=== PATIENT | female | born 1940 | race Caucasian/White ===

== ENCOUNTER 2018-08-24 12:19 | Inpatient (IN) | payer MEDICARE, BC ==
[2018-08-24] MEDS ORDERED: SODIUM CHLORIDE 0.9% 500 ML 500 ML IV STA (13:06)
[2018-08-24] MEDS ORDERED: SODIUM CHLORIDE 0.9% 1,000 ML IV STA (13:06)
[2018-08-24] MEDS ORDERED: IPRATROPIUM-ALBUTEROL 3 ML NEB INHALATION STA (13:23)
[2018-08-24 14:19] LABS: Anisocytosis Slight; HGB 7.4 gm/dL (11.4-16.0); Hypochromasia Slight; MCHC 33.5 g/dL (31.0-37.0); MCV 95.3 fL (80.0-100.0); Mean Platelet Volume 7.9; Platelet Count 100 k/uL (150-450); Poikilocytosis Slight; RBC 2.31 m/uL (3.80-5.40); WBC 3.9 k/uL (3.8-10.6)
[2018-08-24 14:21] LABS: Partial Thromboplastin Time 24.5 sec (22.0-30.0); Prothrombin Time 10.4 sec (9.0-12.0)
[2018-08-24 14:27] LABS: Albumin 2.9 g/dL (3.5-5.0); Magnesium 1.6 mg/dL (1.6-2.3); Phosphorus 4.6 mg/dL (2.5-4.5); Potassium 3.5 mmol/L (3.5-5.1); Total Bilirubin 0.6 mg/dL (0.2-1.3); Total Protein 6.6 g/dL (6.3-8.2)
[2018-08-24 14:54] LABS: Eosinophils # (M) 0.23 k/uL (0-0.7); Lymphocytes # (M) 1.09 k/uL (1.0-4.8); Metamyelocytes # (M) 0.04 k/uL (0); Metamyelocytes % 1 %; Monocytes # (M) 0.08 k/uL (0-1.0); Myelocytes % 5 %; Neutrophils # (M) 2.34 k/uL (1.3-7.7); Neutrophils % (M) 60 %; Nucleated Red Blood Cells 0 /100 WBC (0-0); Total Cells Counted 200
[2018-08-24 14:55] LABS: Polychromasia Present
[2018-08-24 15:35] LABS: Appearance,Urine Clear (Clear); Bacteria,Urine Rare /hpf; Bilirubin,Urine Negative (Negative); Blood,Urine Negative (Negative); Color,Urine Yellow; Glucose,Urine (UA) Negative (Negative); Hyaline Casts,Urine 8 /lpf (0-2); Ketones,Urine Negative (Negative); Leukocyte Esterase,Urine Negative (Negative); Mucus,Urine Rare /hpf; Nitrite,Urine Negative (Negative); PH, Urine 6.5 (5.0-8.0); Protein,Urine 2+ (Negative); RBC,Urine <1 /hpf (0-5); Specific Gravity,Urine 1.008 (1.001-1.035); Urobilinogen,Urine <2.0 mg/dL (<2.0); WBC,Urine 2 /hpf (0-5)
--- NOTE | 2018-08-24 15:44 | ED ---
Weakness HPI - General Chief complaint: Weakness Stated complaint: weakness, cough, abn labs Time Seen by Provider: 08/24/18 12:55 Source: patient Mode of arrival: ambulatory Limitations: no limitations - History of Present Illness Initial comments: This 77-year-old white female presents with a complaint of some weakness and anemia. She states that she has felt weak over the past couple of months. She had some blood work done at [facility] recently and this showed that her hemoglobin was low at 8.0. She denies any known history of anemia. She denies any blood in her stool or black tarry stools. She further relates that she has had a recent cough which is nonproductive. She denies any fevers or chills. There is no significant shortness of breath or chest pain. She states that she thinks she has had a slight weight loss over the past 3 months as well. She did have a workup at [facility] recently including an x-ray of the chest, abdominal/retroperitoneal ultrasound, and computed tomography scan of abdomen and pelvis and laboratory workplease see chart for this information. Overall, it did not show any significant abnormalities. They did note a renal cyst. The above-noted anemia also is identified and her last hemoglobin was 8.0 on 08/17/2018. She denies any abdominal pain. There is no other complaints or mod ifying factors. - Related Data Home Medications Medication Instructions Recorded Confirmed Triamterene-Hctz 75-50Mg [Maxzide 1 tab PO DAILY 08/24/18 08/24/18 75-50] Allergies Allergy/AdvReac Type Severity Reaction Status Date / Time No Known Allergies Allergy Verified 08/24/18 13:03 Review of Systems ROS Statement: Those systems with pertinent positive or pertinent negative responses have been documented in the HPI. ROS Other: All systems not noted in ROS Statement are negative. Past Medical History Past Medical History: Hypertension Additional Past Medical History / Comment(s): anemia, History of Any Multi-Drug Resistant Organisms: None Reported Past Surgical History: Back Surgery, Hysterectomy Past Psychological History: No Psychological Hx Reported Smoking Status: Never smoker Past Alcohol Use History: None Reported Past Drug Use History: None Reported General Exam - General Exam Comments Initial Comments: GENERAL: The patient is well nourished and well hydrated. VITAL SIGNS: Heart rate, blood pressure, respiratory rate reviewed as recorded in nurse's notes. EYES: Pupils are round and reactive. Extraocular movements are intact. No conjunctival / lid redness or swelling. ENT: No external evidence of injury, swelling, or ecchymosis. Airway is patent. Throat is clear. NECK: Nontender. No swelling or evidence of injury. No subcutaneous emphysema. Trachea is midline. No thyroid mass. HEART: Regular rate and rhythm. Good peripheral pulses. LUNGS/CHEST: Breath sounds clear and equal bilaterally. No rales, rhonchi, or wheezes. No ecchymosis, subcutaneous emphysema, or tenderness. ABDOMEN: Abdomen soft without tenderness. No palpable masses or organomegaly. No peritoneal signs. No abdominal wall swelling or ecchymosis. EXTREMITIES: No extremity tenderness. Normal muscle tone and function. No thoracolumbar tenderness. NEUROLOGIC: Sensation is grossly intact. Cranial nerve exam reveals face is symmetrical, tongue is midline, speech is clear. SKIN: No abrasions or ecchymosis is noted. No induration or masses noted. Patient appears pale. PSYCHIATRIC: Alert and oriented. Appropriate behavior and judgment. Rectal exam: No gross blood noted. Good rectal tone. Hemoccult is negative. Limitations: no limitations Course Vital Signs 08/24/18 08/24/18 08/24/18 12:39 14:27 14:38 Temperature 98.4 F Pulse Rate 77 73 74 Respiratory 18 Rate Blood Pressure 100/53 O2 Sat by Pulse 98 Oximetry 08/24/18 15:35 Temperature Pulse Rate 96 Respiratory 18 Rate Blood Pressure 131/58 O2 Sat by Pulse 98 Oximetry Medical Decision Making - Medical Decision Making The patient is seen and examined. All diagnostics are reviewed. The EKG shows a normal sinus rhythm at a rate of 72. There is no acute ST-T wave changes identified. The MN intervals 150, QRS duration is 90, and the QTC intervals 431. The patient also has a laboratory analysis which shows that her hemoglobin is low at 7.4. The remainder of labs are overall fairly unremarkable. It is felt as though she would benefit from admission to the hospital for further workup and treatment. The Hemoccult is negative. The exact cause of her anemia is not definitively determined. She is quite unsteady with ambulation and quite weak. It is felt as though she has symptomatic anemia. The chest x-ray does not show any acute abnormalities per my review. It is felt as though she may have a upper respiratory infection. Case is discussed with Dr. Ambrose and he is agreeable with admission, transfusion of 1 unit of packed red blood cells, and influenza testing. The patient is agreeable as well. - Lab Data Result diagrams: 08/24/18 13:40 08/24/18 13:40 Lab Results 08/24/18 08/24/18 08/24/18 Range/Units 13:40 13:40 13:40 WBC 3.9 (3.8-10.6) k/uL RBC 2.31 L (3.80-5.40) m/uL Hgb 7.4 L (11.4-16.0) gm/dL Hct 22.0 L (34.0-46.0) % MCV 95.3 (80.0-100.0) fL MCH 32.0 (25.0-35.0) pg MCHC 33.5 (31.0-37.0) g/dL RDW 18.0 H (11.5-15.5) % Plt Count 100 L (150-450) k/uL Neutrophils % (Manual) 60 % Lymphocytes % (Manual) 28 % Monocytes % (Manual) 2 % Eosinophils % (Manual) 6 % Metamyelocytes % 1 % Myelocytes % 5 % Neutrophils # (Manual) 2.34 (1.3-7.7) k/uL Lymphocytes # (Manual) 1.09 (1.0-4.8) k/uL Monocytes # (Manual) 0.08 (0-1.0) k/uL Eosinophils # (Manual) 0.23 (0-0.7) k/uL Metamyelocytes # (Man) 0.04 H (0) k/uL Myelocytes # (Manual) 0.20 H (0) k/uL Nucleated RBCs 0 (0-0) /100 WBC Polychromasia Present Hypochromasia Slight Poikilocytosis Slight Anisocytosis Slight PT 10.4 (9.0-12.0) sec INR 1.0 (<1.2) APTT 24.5 (22.0-30.0) sec Sodium 138 (137-145) mmol/L Potassium 3.5 (3.5-5.1) mmol/L Chloride 107 (98-107) mmol/L Carbon Dioxide 23 (22-30) mmol/L Anion Gap 8 mmol/L BUN 28 H (7-17) mg/dL Creatinine 0.97 (0.52-1.04) mg/dL Est GFR (CKD-EPI)AfAm 66 (>60 ml/min/1.73 sqM) Est GFR (CKD-EPI)NonAf 58 (>60 ml/min/1.73 sqM) Glucose 92 (74-99) mg/dL Calcium 9.0 (8.4-10.2) mg/dL Phosphorus 4.6 H (2.5-4.5) mg/dL Magnesium 1.6 (1.6-2.3) mg/dL Total Bilirubin 0.6 (0.2-1.3) mg/dL AST 23 (14-36) U/L ALT 20 (9-52) U/L Alkaline Phosphatase 79 (38-126) U/L Troponin I (0.000-0.034) ng/mL Total Protein 6.6 (6.3-8.2) g/dL Albumin 2.9 L (3.5-5.0) g/dL TSH 0.924 (0.465-4.680) mIU/L Urine Color Urine Appearance (Clear) Urine pH (5.0-8.0) Ur Specific [place] (1.001-1.035) Urine Protein (Negative) Urine Glucose (UA) (Negative) Urine Ketones (Negative) Urine Blood (Negative) Urine Nitrite (Negative) Urine Bilirubin (Negative) Urine Urobilinogen (<2.0) mg/dL Ur Leukocyte Esterase (Negative) Urine RBC (0-5) /hpf Urine WBC (0-5) /hpf Urine Bacteria (None) /hpf Hyaline Casts (0-2) /lpf Urine Mucus (None) /hpf Stool Occult Blood (Negative) Blood Type Blood Type Confirm Blood Type Recheck Antibody Screen Spec Expiration Date 08/24/18 08/24/18 08/24/18 Range/Units 13:40 13:40 14:46 WBC (3.8-10.6) k/uL RBC (3.80-5.40) m/uL Hgb (11.4-16.0) gm/dL Hct (34.0-46.0) % MCV (80.0-100.0) fL MCH (25.0-35.0) pg MCHC (31.0-37.0) g/dL RDW (11.5-15.5) % Plt Count (150-450) k/uL Neutrophils % (Manual) % Lymphocytes % (Manual) % Monocytes % (Manual) % Eosinophils % (Manual) % Metamyelocytes % % Myelocytes % % Neutrophils # (Manual) (1.3-7.7) k/uL Lymphocytes # (Manual) (1.0-4.8) k/uL Monocytes # (Manual) (0-1.0) k/uL Eosinophils # (Manual) (0-0.7) k/uL Metamyelocytes # (Man) (0) k/uL Myelocytes # (Manual) (0) k/uL Nucleated RBCs (0-0) /100 WBC Polychromasia Hypochromasia Poikilocytosis Anisocytosis PT (9.0-12.0) sec INR (<1.2) APTT (22.0-30.0) sec Sodium (137-145) mmol/L Potassium (3.5-5.1) mmol/L Chloride (98-107) mmol/L Carbon Dioxide (22-30) mmol/L Anion Gap mmol/L BUN (7-17) mg/dL Creatinine (0.52-1.04) mg/dL Est GFR (CKD-EPI)AfAm (>60 ml/min/1.73 sqM) Est GFR (CKD-EPI)NonAf (>60 ml/min/1.73 sqM) Glucose (74-99) mg/dL Calcium (8.4-10.2) mg/dL Phosphorus (2.5-4.5) mg/dL Magnesium (1.6-2.3) mg/dL Total Bilirubin (0.2-1.3) mg/dL AST (14-36) U/L ALT (9-52) U/L Alkaline Phosphatase (38-126) U/L Troponin I <0.012 (0.000-0.034) ng/mL Total Protein (6.3-8.2) g/dL Albumin (3.5-5.0) g/dL TSH (0.465-4.680) mIU/L Urine Color Urine Appearance (Clear) Urine pH (5.0-8.0) Ur Specific [place] (1.001-1.035) Urine Protein (Negative) Urine Glucose (UA) (Negative) Urine Ketones (Negative) Urine Blood (Negative) Urine Nitrite (Negative) Urine Bilirubin (Negative) Urine Urobilinogen (<2.0) mg/dL Ur Leukocyte Esterase (Negative) Urine RBC (0-5) /hpf Urine WBC (0-5) /hpf Urine Bacteria (None) /hpf Hyaline Casts (0-2) /lpf Urine Mucus (None) /hpf Stool Occult Blood (Negative) Blood Type O Positive Blood Type Confirm O Positive Blood Type Recheck CABO Indicated Antibody Screen NEGATIVE Spec Expiration Date 08/27/2018233908/24/18 08/24/18 Range/Units 15:01 15:19 WBC (3.8-10.6) k/uL RBC (3.80-5.40) m/uL Hgb (11.4-16.0) gm/dL Hct (34.0-46.0) % MCV (80.0-100.0) fL MCH (25.0-35.0) pg MCHC (31.0-37.0) g/dL RDW (11.5-15.5) % Plt Count (150-450) k/uL Neutrophils % (Manual) % Lymphocytes % (Manual) % Monocytes % (Manual) % Eosinophils % (Manual) % Metamyelocytes % % Myelocytes % % Neutrophils # (Manual) (1.3-7.7) k/uL Lymphocytes # (Manual) (1.0-4.8) k/uL Monocytes # (Manual) (0-1.0) k/uL Eosinophils # (Manual) (0-0.7) k/uL Metamyelocytes # (Man) (0) k/uL Myelocytes # (Manual) (0) k/uL Nucleated RBCs (0-0) /100 WBC Polychromasia Hypochromasia Poikilocytosis Anisocytosis PT (9.0-12.0) sec INR (<1.2) APTT (22.0-30.0) sec Sodium (137-145) mmol/L Potassium (3.5-5.1) mmol/L Chloride (98-107) mmol/L Carbon Dioxide (22-30) mmol/L Anion Gap mmol/L BUN (7-17) mg/dL Creatinine (0.52-1.04) mg/dL Est GFR (CKD-EPI)AfAm (>60 ml/min/1.73 sqM) Est GFR (CKD-EPI)NonAf (>60 ml/min/1.73 sqM) Glucose (74-99) mg/dL Calcium (8.4-10.2) mg/dL Phosphorus (2.5-4.5) mg/dL Magnesium (1.6-2.3) mg/dL Total Bilirubin (0.2-1.3) mg/dL AST (14-36) U/L ALT (9-52) U/L Alkaline Phosphatase (38-126) U/L Troponin I (0.000-0.034) ng/mL Total Protein (6.3-8.2) g/dL Albumin (3.5-5.0) g/dL TSH (0.465-4.680) mIU/L Urine Color Yellow Urine Appearance Clear (Clear) Urine pH 6.5 (5.0-8.0) Ur Specific [place] 1.008 (1.001-1.035) Urine Protein 2+ H (Negative) Urine Glucose (UA) Negative (Negative) Urine Ketones Negative (Negative) Urine Blood Negative (Negative) Urine Nitrite Negative (Negative) Urine Bilirubin Negative (Negative) Urine Urobilinogen <2.0 (<2.0) mg/dL Ur Leukocyte Esterase Negative (Negative) Urine RBC <1 (0-5) /hpf Urine WBC 2 (0-5) /hpf Urine Bacteria Rare H (None) /hpf Hyaline Casts 8 H (0-2) /lpf Urine Mucus Rare H (None) /hpf Stool Occult Blood Negative (Negative) Blood Type Blood Type Confirm Blood Type Recheck Antibody Screen Spec Expiration Date Disposition Clinical Impression: Symptomatic anemia, Weakness, Cough, Upper respiratory infection Disposition: ADMITTED IP TO THIS [facility] Condition: Fair Is patient prescribed a controlled substance at d/c from ED?: No Referrals: Alexsander Helm MD [Primary Care Provider] - 1-2 days Time of Disposition: 16:03 Decision Date: 08/24/18 Decision Time: 16:03
--- NOTE | 2018-08-24 15:49 | XR ---
EXAMINATION TYPE: XR chest 2V DATE OF EXAM: 08/24/2018 COMPARISON: NONE HISTORY: Cough, congestion, weakness and abnormal labs. TECHNIQUE: Frontal and lateral views of the chest are obtained. FINDINGS: There is no focal air space opacity, pleural effusion, or pneumothorax seen. The cardiac silhouette size is mildly enlarged. The osseous structures are intact. IMPRESSION: No acute cardiopulmonary process.
[2018-08-24] MEDS ORDERED: ONDANSETRON 4 MG/2 ML VIAL IVP PRN (16:04)
[2018-08-24] MEDS ORDERED: IPRATROPIUM-ALBUTEROL 3 ML NEB INHALATION PRN (16:10)
[2018-08-24] MEDS ORDERED: PANTOPRAZOLE 40 MG/10 ML VIAL IV SCH (16:15)
[2018-08-24 18:20] VITALS: BMI 26.6
[2018-08-24] MEDS ORDERED: RX INFO: IV CONTRAST WAS GIVEN 1 EACH MISC MISCELLANE PRN (21:26)
[2018-08-24] MEDS: LORATADINE-PSEUDOEPH 5-120 MG 1 EACH TAB.ER.12H PO SCH (23:10)
--- NOTE | 2018-08-25 00:19 | HP ---
HISTORY AND PHYSICAL PRESENTING COMPLAINT: Weak and tired. HISTORY OF PRESENTING COMPLAINT: This is a pleasant 77-year-old patient who follows with Dr. Helm. The patient presents with feeling tired and run down. The patient has a decreased appetite for the last 3 weeks, has lost about 12 pounds. Also for a few weeks she describes as a cold, has a cough with clear phlegm, but no fever or chills. Just feels tired and run down. The patient in the ER was found to have a hemoglobin of 7.4. Because she was symptomatic, weak and tired, decided to get admitted. A unit of blood was ordered. The patient denies any blood in the sputum. No blood in the stools. Denies any fevers or chills. REVIEW OF SYSTEMS: CONSTITUTIONAL: Weight loss, loss of appetite. HEENT: Decreased hearing. RESPIRATORY: As above with congestion. CARDIOVASCULAR: None. GASTROINTESTINAL: None. GENITOURINARY: None. MUSCULOSKELETAL: None. LYMPHATIC: None. PSYCHIATRY: None. NEUROLOGIC: None. PAST MEDICAL HISTORY: Hypertension, anemia. PAST SURGICAL HISTORY: Back surgery, hysterectomy. SOCIAL HISTORY: No smoking, no alcohol. . FAMILY HISTORY: Reviewed, noncontributory to presentation. HOME MEDICATIONS: Maxzide 75/50 one tab p.o. daily. ALLERGIES: None. PHYSICAL EXAMINATION: VITAL SIGNS: Vital signs on presentation, temperature 98.4, pulse 77, respiration 18, blood pressure 100/53, pulse 98% on room air. GENERAL APPEARANCE: Average built, sitting up, awake. EYES: Pupil equal. Conjunctivae pale. HEENT: External appearance of nose is normal. Oral cavity showing telangectasia on the lips. NECK: JVD not raised. Mass not palpable. Respiratory effort normal. LUNGS: Clear. CARDIOVASCULAR: 1st and 2nd sounds normal. No edema. ABDOMEN: Soft, nontender. Liver and spleen not palpable. LYMPHATIC: No lymph nodes palpable in the neck or axillae. PSYCHIATRY: Alert and oriented x3. Mood and affect normal. NEUROLOGIC: Pupils equal. Cranial nerves grossly intact. Power and sensation grossly intact. HEENT: Decreased hearing. INVESTIGATIONS: Reviewed in the clinical context. White count 3.9, hemoglobin 7.4, platelets 100,000. Potassium 3.5, BUN 28, creatinine 0.59, albumin 2.9. TSH 0.924. EKG tracing personally reviewed by me shows normal sinus rhythm. Chest x-ray film personally reviewed by me shows no infiltrates on the chest x-ray review. Report was reviewed. ASSESSMENT: 1. This is a patient who presents with a loss of appetite for 3 weeks, weight loss, found to be anemic. Will do a CT scan of the chest, abdomen and pelvis with contrast. Other workup done as an outpatient. 2. Bicytopenia with normocytic anemia. Need to consider other causes including a bone marrow disorder. 3. Essential hypertension. PLAN: The patient was ordered a unit of blood. We will check a CBC tomorrow. We will do a CT scan of the chest, abdomen, and pelvis with contrast. If all negative, the patient will need an EGD to rule out Osler Cordova Rendu syndrome given the telangectasia on the lips. Otherwise also need hematological workup by hematology scheduled as an outpatient. I expect the patient to stay overnight and if everything is negative she can be discharged tomorrow. Care was discussed at length with the patient. YVROSE / LEON: [id number] /
[2018-08-25 02:55] LABS: Iron Saturation 12.95 (12.00-45.00)
[2018-08-25] MEDS: IOPAMIDOL-300 CONTRAST 30 ML VIAL (ORAL USE) PO PRN ×2 (06:35→07:34)
[2018-08-25 08:12] LABS: Anisocytosis Slight; HCT 24.3 % (34.0-46.0); HGB 8.1 gm/dL (11.4-16.0); Hypochromasia Slight; MCH 31.4 pg (25.0-35.0); MCHC 33.2 g/dL (31.0-37.0); MCV 94.6 fL (80.0-100.0); Mean Platelet Volume 8.1; Poikilocytosis Slight; RBC 2.57 m/uL (3.80-5.40); RDW 17.7 % (11.5-15.5); WBC 3.3 k/uL (3.8-10.6)
[2018-08-25 08:28] LABS: ALT 26 U/L (9-52); AST 16 U/L (14-36); Albumin 2.7 g/dL (3.5-5.0); Alkaline Phosphatase 78 U/L (38-126); Anion Gap 6 mmol/L; Blood Urea Nitrogen 20 mg/dL (7-17); Calcium 8.9 mg/dL (8.4-10.2); Carbon Dioxide 24 mmol/L (22-30); Chloride 110 mmol/L (98-107); Glucose 119 mg/dL (74-99); Potassium 3.3 mmol/L (3.5-5.1); Sodium 140 mmol/L (137-145); Total Bilirubin 0.6 mg/dL (0.2-1.3); Total Protein 6.2 g/dL (6.3-8.2)
[2018-08-25] MEDS: ENOXAPARIN 40 MG/0.4 ML SYRINGE SQ SCH (08:34)
[2018-08-25] MEDS: LORATADINE-PSEUDOEPH 5-120 MG 1 EACH TAB.ER.12H PO SCH ×2 (08:35→20:34)
[2018-08-25] MEDS ORDERED: TRIAMTERENE-HCTZ 75-50MG 1 EACH TAB PO SCH (09:00)
[2018-08-25 09:04] LABS: Band Neutrophils % 2 %; Eosinophils # (M) 0.26 k/uL (0-0.7); Lymphocytes # (M) 0.69 k/uL (1.0-4.8); Metamyelocytes # (M) 0.07 k/uL (0); Metamyelocytes % 2 %; Myelocytes # (M) 0.23 k/uL (0); Myelocytes % 7 %; Neutrophils % (M) 54 %; Promyelocytes # (M) 0.03 k/uL (0); Promyelocytes % 1 %
[2018-08-25 09:08] LABS: Blast Cells # (M) 0.13 k/uL (0); Nucleated Red Blood Cells 1 /100 WBC (0-0); Total Cells Counted 200
[2018-08-25 09:09] LABS: Polychromasia Present
[2018-08-25 09:11] LABS: Platelet Count 97 k/uL (150-450)
--- NOTE | 2018-08-25 09:40 | CT ---
EXAMINATION TYPE: CT ChestAbdPelvis w con DATE OF EXAM: 08/25/2018 COMPARISON: Radiograph 08/24/2018 HISTORY: 77-year-old female Symptomatic anemia, URI and Cough. R/O malignancy TECHNIQUE: Contiguous axial scanning of the chest, abdomen, and pelvis performed with IV Contrast, pa tient injected with 100 ml mL of Isovue 300. Delayed images through the kidneys were obtained. Genao l/sagittal reconstructions performed. CT DLP: 1697 mGycm Automated exposure control for dose reduction was used. FINDINGS: CHEST: Heart upper limits of normal in size with trace anterior basilar pericardial fluid. Aorta normal caliber with mild atherosclerotic arch calcifications and conventional arch vessel branc amarjit anatomy. No thoracic lymphadenopathy by CT size criteria. Mild dependent atelectasis and scattered additional strandy areas of atelectasis. No consolidation or pleural effusion. 4 mm subpleural pulmonary nodule peripheral left lower lobe, axial image 39 can be reassessed in one year. ABDOMEN: Tiny hiatal hernia. No focal liver lesion or biliary ductal dilatation. Portal venous system is patent. Borderline enlarg ed caliber to the main portal vein at 1.4 cm in the splenic vein 1.4 cm as well. Spleen is mildly enlarged at 14.0 cm. Gallbladder, adrenal glands, left kidney, and pancreas appear within normal limits. 3.4 cm benign cyst medial upper pole region. A couple additional subcentimeter hypodensities too smal l fragment CT characterization, probable cysts. A tiny 7 mm cortical hypodensity lateral lower pole s hows more intermediate attenuation, refer to delayed kidney images axial image 45 and can BE reassess ed at short interval follow-up. There is some focal pleural thickening along the proximal jejunum, refer to axial image 64 and genao l image 21, possible collapsed loop of bowel that should be reassessed at short interval follow-up. S ome scattered prominent mesenteric lymph nodes measure up to 6 mm and are probably reactive/post infl ammatory. No dilated small bowel, free fluid, or free air. Very redundant sigmoid colon extending out to the right side of the lower abdomen. Mild overall stool burden. Portion of a normal appendix is visualized. Pelvis: Bladder is urine distended. Uterus surgically absent. Some focal thickening along the pelvic sidewall s suspected to represent the ovaries. No abnormal fluid collection in the pelvis or pelvic lymphadeno mendoza seen. Bones: Stellate sclerotic focus within the right intertrochanteric region, likely bone island. Additional pr obable bone island posterior left acetabulum. Degenerative changes at the hips. Post surgical changes of L4-L5 posterior fusion. Mild to moderate degenerative disc disease mid to lower thoracic spine. N o osseous destructive process. IMPRESSION: 1. A 4 MM LEFT LOWER LOBE SUBPLEURAL PULMONARY NODULE CAN BE REASSESSED IN ONE YEAR. 2. BORDERLINE ENLARGED CALIBER TO THE MAIN PORTAL VEIN AND MILDLY ENLARGED CALIBER TO THE SPLENIC VEI N. THIS IS NONSPECIFIC BUT CAN BE SEEN IN THE SETTING OF PORTAL VENOUS HYPERTENSION. CLINICALLY CORRE LATE. THERE IS ALSO MILD SPLENOMEGALY AT 14.0 CM. 3. A NONSPECIFIC 7 MM LESION IN THE RIGHT KIDNEY SHOWS INTERMEDIATE ATTENUATION. IT MAY REPRESENT A T INY DEBRIS FILLED CYST. [address] MONTH FOLLOW-UP CT RECOMMENDED TO EXCLUDE A SMALL EARLY SOLID MASS. 4. AT THE FOLLOW-UP, SOME FOCAL BOWEL WALL THICKENING ALONG THE PROXIMAL JEJUNUM CAN ALSO BE REASSESS ED (CORONAL IMAGE 21). THIS MAY REPRESENT COLLAPSED BOWEL WALL. 5. INCIDENTALLY, THERE IS A VERY REDUNDANT SIGMOID COLON EXTENDING ALL THE WAY TO THE RIGHT SIDE OF T HE LOWER ABDOMEN. QUESTIONABLE CLINICAL SIGNIFICANCE.
--- NOTE | 2018-08-26 04:32 | PN ---
PROGRESS NOTE DATE OF SERVICE: 08/25/2018 PRESENTING COMPLAINT: Tired. INTERVAL HISTORY: This patient admitted with anemia, decreased appetite, weight loss, viral upper respiratory tract infection. Did get blood transfusion, feeling better today. The patient's peripheral blood smear is suggestive of myelodysplastic syndrome showing a lot of premature cells. This was discussed with Dr. Murillo ), pathologist. The patient still has respiratory symptoms. REVIEW OF SYSTEMS: Done for constitutional, cardiovascular, GI, pulmonary and findings as above. CURRENT MEDICATIONS: Reviewed that include Claritin-D. PHYSICAL EXAMINATION: Temperature 98.5, pulse 72, respirations 17, blood pressure 142/65, pulse ox 96 percent on room air. GENERAL: Sitting up, awake. EYES: Pupils equal. Conjunctivae normal. Pale. NECK: JVD not raised, mass not palpable. Respiratory effort normal. LUNGS: Clear. CARDIOVASCULAR: First and second heart sounds normal. No edema. ABDOMEN: Soft, nontender. Liver and spleen not palpable. PSYCHIATRY: Alert and oriented. Mood and affect normal. INVESTIGATIONS: CT scan of the abdomen chest and pelvis, no evidence of any obvious malignancy. The patient's white count 3.8, hemoglobin 8.1, platelets 97, and premature cells also noted. Potassium 3.3. The patient's other blood parameters were noted. ASSESSMENT: 1. Clinical and hematological picture at this point suggestive of myelodysplastic disorder. The patient will need a bone marrow. 2. No obvious evidence of any other malignancy at this point. 3. Symptomatic anemia from above, patient feeling better after blood transfusion. 4. Essential hypertension. 5. Upper respiratory tract viral infection. 6. Some telangiectasia, rule out a gastrointestinal cause. PLAN: Will get a hematology consultation. The patient will probably need a bone marrow. Will also get a GI opinion in case patient will need an EGD. Care was discussed at length with the patient and and several questions were answered. Total time spent today was 40 minutes with over 25 minutes of discussion. MMODL / IJN: [id number] /
[2018-08-26] MEDS: LORATADINE-PSEUDOEPH 5-120 MG 1 EACH TAB.ER.12H PO SCH ×2 (07:44→20:29)
--- NOTE | 2018-08-26 11:36 | P.CONS ---
History of Present Illness - Reason for Consult Consult date: 08/26/18 Anemia Requesting physician: Jagjit Ambrose - Chief Complaint Weakness - History of Present Illness 77-year-old female past medical history hypertension presents with weakness and a reported low hemoglobin of 8 at [facility]. Patient denies overt bleeding such as hematemesis hematochezia or melena. No history GI bleed or peptic ulcer disease. No history of EGD colonoscopy. Slight change in appetite over last few weeks with mild weight loss but states she has regained it back. Denies epigastric or abdominal pain. No fevers or chills. No history of malignancy or familial history of colon cancer. Admission hemoglobin 7.4 presently 8.1. MCV 94-95. Platelet 97-100,000. 4% blasts cells. White count 3.3-3.9. BUN 28. Creatinine 0.9. Iron 25. TIBC 19 3. Iron saturation 12%. Ferritin 431. Vitamin B-12 1970. FOBT negative. Influenza negative. CT chest abdomen and pelvis 4 mm left lower lobe subpleural pulmonary nodule can be reassessed in one year. Borderline enlarged caliber to the main portal vein and mildly enlarged caliber to the splenic vein. Nonspecific. Mild splenomegaly 14 cm. Focal small bowel wall thickening along the proximal jejunum may represent collapsed bowel wall. Redundant sigmoid colon. Review of Systems Constitutional: Denies fever, chills, sweats, weight gain, or loss. Weakness fatigue. HEENT: Negative for migraines, blurred vision or loss, earaches, drainage, tinnitus, oral mucosal lesions, dysphagia, or odynophagia. CARDIAC: Negative for chest pain, arrhythmias, or palpitation. RESPIRATORY: Negative for shortness of breath, hemoptysis, cough, or sputum production. GI: See HPI for pertinent findings. : Negative for hematuria, urgency, frequency, polyuria, or dysuria. GYNc: Negative vaginal discharge. MUSCULOSKELETAL: Negative for muscle aches, swelling, arthritis, and arthralgias. NEUROLOGIC: Negative for stroke or TIA. ENDOCRINE: Negative for thyroid problems. SKIN: Negative for rash or itching. PSYCHIATRIC: Negative history for depression and anxiety Past Medical History Past Medical History: Hypertension Additional Past Medical History / Comment(s): anemia, History of Any Multi-Drug Resistant Organisms: None Reported Past Surgical History: Back Surgery, Hysterectomy Past Anesthesia/Blood Transfusion Reactions: No Reported Reaction Past Psychological History: No Psychological Hx Reported Smoking Status: Never smoker Past Alcohol Use History: None Reported Past Drug Use History: None Reported - Past Family History Mother Family Medical History: No Reported History Medications and Allergies Home Medications Medication Instructions Recorded Confirmed Type Triamterene-Hctz 75-50Mg [Maxzide 1 tab PO DAILY 08/24/18 08/24/18 History 75-50] Loratadine-Pseudoeph 5-120 mg 1 each PO Q12HR #10 tab.er.12h 08/25/18 Rx [Claritin-D 12 Hour] Allergies Allergy/AdvReac Type Severity Reaction Status Date / Time No Known Allergies Allergy Verified 08/24/18 13:03 Physical Exam Vitals: Vital Signs Temp Pulse Pulse Resp BP Pulse Ox 08/26/18 08:20 75 74 16 08/26/18 05:01 99.9 F H 74 16 130/71 97 08/25/18 21:00 98.1 F 71 16 119/58 97 08/25/18 11:55 98.5 F 70 17 142/65 96 Intake and Output 08/25/18 08/26/18 08/26/18 22:59 06:59 14:59 Intake Total 590 590 Balance 590 590 Intake: Oral 590 590 Other: Voiding Method Toilet Toilet Bedside Commode Bedside Commode # Voids 1 3 General appearance: The patient is alert, oriented, in no acute distress. HET: Head is normocephalic and atraumatic. Pupils are equal and reactive. Oropharynx is clear without lesions. Neck: Supple without lymphadenopathy. Trachea midline. Heart: S1 S2. Regular rate and rhythm. Lungs: No crackles or wheezes are heard. Abdomen: Soft, nontender, nondistended with bowel sounds. No peritoneal signs. No palpable organomegaly or masses. Extremities: Normal skin color and turgor. No cyanosis, rash, ulceration, clubbing, or edema. Radial and pedal pulses are 2/4 bilaterally. Neurological: No focal deficits. Strength and sensation are grossly intact. Results CBC & Chem 7: 08/25/18 07:45 08/25/18 07:45 Labs: Abnormal Lab Results - Last 24 Hours (Table) 08/25/18 Range/Units 07:45 Pathologist Review See comment A CT scan - abdomen: report reviewed (Dr. Seals) CT scan - chest: report reviewed (Dr. Seals) CT scan - pelvis: report reviewed (Dr. Seals) Assessment and Plan (1) Symptomatic anemia Narrative/Plan: 77-year-old female presents with symptomatic normocytic mildly hypochromic anemia with change in appetite over the last few weeks without abdominal pain, overt bleeding such as hematemesis hematochezia or melena. CBC differential shows evidence of bicytopenia with blast cells possible underlying bone marrow pathology possible MDS. Anemia secondary to an underlying gastrointestinal source cannot be excluded. No history of EGD colonoscopy screening. Current Visit: Yes Status: Acute Code(s): D64.9 - ANEMIA, UNSPECIFIED SNOMED Code(s): 092202117 Plan: 1. EGD colonoscopy recommended but will discuss further after bone marrow is completed by hematology. Case was discussed with Dr. Aguilar. Diet as tolerated. CBC monitoring. Thank you for this kind referral and the opportunity to participate in the care of your patient. This consultation was discussed with Dr. Seals. The impression and plan of care have been directed as dictated.
[2018-08-26] MEDS: ENOXAPARIN 40 MG/0.4 ML SYRINGE SQ SCH (11:46)
[2018-08-26] MEDS ORDERED: BISACODYL 5 MG TABLET.DR PO ONE (12:00)
[2018-08-26] MEDS ORDERED: PEG 3350-NA SULF,BICARB,CL/KCL 4,000 ML BOTTLE PO ONE (16:00)
[2018-08-26] MEDS: ACETAMINOPHEN TAB 325 MG TAB PO PRN (20:29)
--- NOTE | 2018-08-26 22:48 | P.CONS ---
History of Present Illness - Reason for Consult Consult date: 08/26/18 Pancytopenia - History of Present Illness The patient is a 77-year-old white female, and otherwise good health. The patient had come into her PCP, complaining of not feeling well over the past 2-3 weeks, with progression of symptoms, of malaise, decreased appetite, and weight loss of about 12 pounds. She stated that she hadn't had a cough for 2-3 months, with some increase in intensity as well as production of clear phlegm over the past couple of weeks. In the hospital, the patient had labs done which showed a hemoglobin of 7.4. WBC was 3.9, with 54% neutrophils, but a significant left shift including 4% b lasts on peripheral smear. Plt counts were 100. CT scan of the chest abdomen and pelvis did not reveal any concerning was her lesions or lymphadenopathy. Consult was therefore placed for further evaluation and recommendations. She denied any prior history of blood problems, or recent change in medications. No history of any actual fever or chills. Review of Systems Constitutional: Reports fatigue, Reports poor appetite, Reports weight loss Eyes: denies blurred vision, denies pain Ears: deny: decreased hearing, ear discharge, earache, tinnitus Ears, nose, mouth and throat: Reports sore throat Cardiovascular: Reports dyspnea on exertion Respiratory: Reports congestion, Reports cough, Reports dyspnea Gastrointestinal: Denies abdominal pain, Denies diarrhea, Denies nausea, Denies vomiting Genitourinary: Denies dysuria, Denies hematuria Menstruation: Reports postmenopausal Musculoskeletal: Reports muscle weakness Integumentary: Denies pruritus, Denies rash Neurological: Reports weakness Psychiatric: Denies anxiety, Denies depression Endocrine: Reports fatigue, Reports weight change Hematologic/Lymphatic: Reports as per HPI Past Medical History Past Medical History: Hypertension Additional Past Medical History / Comment(s): anemia, History of Any Multi-Drug Resistant Organisms: None Reported Past Surgical History: Back Surgery, Hysterectomy Past Anesthesia/Blood Transfusion Reactions: No Reported Reaction Past Psychological History: No Psychological Hx Reported Smoking Status: Never smoker Past Alcohol Use History: None Reported Past Drug Use History: None Reported - Past Family History Mother Family Medical History: No Reported History Medications and Allergies Home Medications Medication Instructions Recorded Confirmed Type Triamterene-Hctz 75-50Mg [Maxzide 1 tab PO DAILY 08/24/18 08/24/18 History 75-50] Loratadine-Pseudoeph 5-120 mg 1 each PO Q12HR #10 tab.er.12h 08/25/18 Rx [Claritin-D 12 Hour] Allergies Allergy/AdvReac Type Severity Reaction Status Date / Time No Known Allergies Allergy Verified 08/24/18 13:03 Physical Exam Vitals: Vital Signs Temp Pulse Pulse Resp BP Pulse Ox 08/26/18 15:01 75 82 17 08/26/18 11:52 98.3 F 82 17 128/67 98 08/26/18 08:20 75 74 16 08/26/18 05:01 99.9 F H 74 16 130/71 97 08/25/18 21:00 98.1 F 71 16 119/58 97 Intake and Output 08/26/18 08/26/18 08/26/18 06:59 14:59 22:59 Intake Total 590 260 Balance 590 260 Intake: Oral 590 260 Other: Voiding Method Toilet Toilet Toilet Bedside Commode Bedside Commode Bedside Commode # Voids 3 3 - Constitutional General appearance: no acute distress - EENT Eyes: EOMI, PERRLA ENT: hearing grossly normal, normal oropharynx - Neck Neck: no lymphadenopathy Thyroid: bilateral: normal size - Respiratory Respiratory: bilateral: CTA - Cardiovascular Rhythm: regular Heart sounds: normal: S1, S2 - Gastrointestinal General gastrointestinal: normal bowel sounds, soft - Integumentary Integumentary: normal - Neurologic Neurologic: CNII-XII intact - Musculoskeletal Musculoskeletal: generalized weakness, strength equal bilaterally - Psychiatric Psychiatric: A&O x's 3, appropriate affect Results CBC & Chem 7: 08/25/18 07:45 08/25/18 07:45 Chest x-ray: report reviewed CT scan - abdomen: report reviewed CT scan - chest: report reviewed CT scan - pelvis: report reviewed Assessment and Plan (1) Pancytopenia Narrative/Plan: This appears to be new onset, with no prior predisposing factors, such as medications or ETOH. Based on the clinicaly picture, especially WBC diff, a prim gregg bone marrow etiology , such as MDS, and Myelofibrosis , among others, is suspected. A viral infection could also cause this picture transiently, but this amount of left shift would be less likely - Thus the pt was recommended a bone marrow aspiration and biopsy for further w/u. The procedure was explained in detail. We will proceed to set it up with sedation. - Pancytopenia labs will be ordered - All counts are in a safe range. Continue to monitor and transfuse if needed. Use only irradiated blood products Current Visit: Yes Status: Acute Code(s): D61.818 - OTHER PANCYTOPENIA SNOMED Code(s): 965396199 (2) Weakness Narrative/Plan: Likely due to the underlying pancytopenia Current Visit: Yes Status: Acute Code(s): R53.1 - WEAKNESS SNOMED Code(s): 23996770
--- NOTE | 2018-08-26 23:39 | PN ---
PROGRESS NOTE DATE OF SERVICE: 08/26/2018 PRESENTING COMPLAINT: Tired. INTERVAL HISTORY: This patient presented with anemia and a viral upper respiratory tract infection; getting symptomatic treatment. The patient's peripheral blood smear is suggestive of myelodysplastic syndrome. Both GI and Hematology were consulted. The patient is tolerating some diet, status post blood transfusion. REVIEW OF SYSTEMS: Done for constitutional, cardiovascular, GI, pulmonary; relevant findings as above. CURRENT MEDICATIONS: Reviewed. They include Claritin-D. PHYSICAL EXAMINATION: Temperature 98.3, pulse 82, respiration 17, blood pressure 120/67, pulse ox 98% on room air. GENERAL APPEARANCE: Lying in bed, tired. Awake. EYES: Pupils equal. Conjunctivae pale. NECK: JVD not raised. Mass not palpable. RESPIRATORY: Effort normal. LUNGS: Fair air entry. CARDIOVASCULAR: First and second sounds normal. No edema. ABDOMEN: Soft, non-tender. Liver and spleen not palpable. PSYCHIATRY: Alert and oriented x3. Mood and affect normal. INVESTIGATIONS: White count 3.3, hemoglobin 8.1, platelets 97. Potassium 3.3. These labs are from yesterday. ASSESSMENT: 1. Hematological picture suggestive of myelodysplastic syndrome. Patient will probably need a bone marrow analysis. 2. Symptomatic anemia from above. Patient did require blood transfusion. 3. Essential hypertension. 4. Upper respiratory tract viral infection. 5. Some telangiectasia. Rule out a GI cause. PLAN: Await input from GI and Hematology. Care was discussed with the patient and her at the bedside. Later in the day patient did have a fever. ID will be consulted with both urine and blood cultures to be done. Patient did spike a fever of 102; I was called this evening. MMODL / IJN: [id number] /
[2018-08-27] MEDS: CEFEPIME 2 GM in SODIUM CHLORIDE 0.9% 100 ML IVPB SCH ×3 (00:40→23:08)
[2018-08-27 04:08] LABS: Appearance,Urine Clear (Clear); Bacteria,Urine Few /hpf; Bilirubin,Urine Negative (Negative); Blood,Urine Trace (Negative); Color,Urine Yellow; Glucose,Urine (UA) Negative (Negative); Ketones,Urine Negative (Negative); Leukocyte Esterase,Urine Trace (Negative); Mucus,Urine Rare /hpf; Nitrite,Urine Negative (Negative); PH, Urine 6.5 (5.0-8.0); Protein,Urine 3+ (Negative); RBC,Urine 1 /hpf (0-5); Specific Gravity,Urine 1.007 (1.001-1.035); Squamous Epithelial Cell,Urine 1 /hpf (0-4); Urobilinogen,Urine <2.0 mg/dL (<2.0)
[2018-08-27] MEDS: LORATADINE-PSEUDOEPH 5-120 MG 1 EACH TAB.ER.12H PO SCH ×2 (08:45→21:21)
[2018-08-27 08:58] LABS: Anisocytosis Slight; HCT 23.1 % (34.0-46.0); HGB 7.5 gm/dL (11.4-16.0); Hypochromasia Slight; MCH 29.9 pg (25.0-35.0); MCHC 32.3 g/dL (31.0-37.0); MCV 92.5 fL (80.0-100.0); Mean Platelet Volume 8.4; Platelet Count 106 k/uL (150-450); Poikilocytosis Slight; RDW 17.1 % (11.5-15.5); Reticulocyte % 1.9 % (0.5-2.0); WBC 3.5 k/uL (3.8-10.6)
--- NOTE | 2018-08-27 10:49 | XR ---
EXAMINATION TYPE: XR ankle complete LT, XR foot complete LT DATE OF EXAM: 08/27/2018 CLINICAL HISTORY: Left ankle and foot pain and swelling TECHNIQUE: Frontal, lateral and oblique images of the left foot and ankle are obtained. COMPARISON: None. FINDINGS: There is no acute fracture/dislocation evident in the left ankle or foot. The ankle morti se appears intact with normal alignment. No radiographic soft tissue swelling or radiopaque foreign b [place] is seen. There are calcifications along the Achilles tendon and plantar fascia that can be seen in calcific te ndinosis. Few vascular calcifications are also present. Moderate plantar heel spur is seen. Few faint calcifications at the first metacarpal phalangeal joint could be on a degenerative basis or could re late to gout/pseudogout. IMPRESSION: 1. No acute fracture or dislocation in the left foot or ankle. 2. Calcifications along the plantar fascia and Achilles tendon may relate to prior trauma or calcific tendinosis. 3. A few vague calcifications at the first metacarpal phalangeal joint may be degenerative or could r elate to mild sequela of gout/pseudogout. No erosions are seen.
[2018-08-27] MEDS ORDERED: MIDAZOLAM 2 MG/2 ML VIAL ONE (12:07)
[2018-08-27] MEDS ORDERED: IV FLUID CONTINUATION 1,000 ML IV ONE (12:07)
[2018-08-27] MEDS ORDERED: fentaNYL (PF) 50 MCG/ML 2 ML AMP ONE (12:07)
[2018-08-27] MEDS ORDERED: LIDOCAINE 1% INJ 10MG/ML (20 ML MDV) ONE (12:07)
[2018-08-27] MEDS ORDERED: PROPOFOL 10 MG/ML 20 ML VIAL IV ONE (12:07)
--- NOTE | 2018-08-27 12:23 | P.CONS ---
History of Present Illness - Reason for Consult Consult date: 08/27/18 Temperature of 102. - History of Present Illness This is a 77-year-old female gives history of having a cough with phlegm production, generalized weakness, generalized malaise over the past couple weeks. She denies having any fever, no chest pain, no abdominal pain, no nausea, vomiting, diarrhea. She came into [facility] emergency center for evaluation. Her white count was at 3.3 with hemoglobin 8.1 and platelet count 97, blast for. Smear showed possible MDS or other myelopthisic process involving the bone marrow. Homocysteine 15.43, albumin 2.7. Urinalysis was clear with nitrate negative and leukoesterase trace. Influenza testing done on August 24 and August 26 are all negative. Patient developed fever 102 on August 26. She has been seen by GI for anemia and need for possible EGD colonoscopy after bone marrow biopsy. Patient has been seen by Dr. Aguilar for pancytopenia and bone marrow biopsy is scheduled for today at noon. CAT scan of the chest abdomen and pelvis showed a 4 mm left lower lobe subpleural pulmonary nodule. Borderline portal vein and mildly enlarged caliber to the splenic vein, nonspecific seen in the setting of portal venous hypertension. Mild splenomegal y. Nonspecific 7 mm lesion in the right kidney may represent debris filled cyst. Focal bowel wall thickening along the proximal jejunum may represent collapsed bowel wall. Incidentally redundant sigmoid colon extending all the way to the right side of the lower abdomen. Patient states she has had weight loss of about 8 pounds and at this point her appetite is good. Patient is noted to have erythema to the left foot and she denies having any injury to the area. She states she was scratching the area to the lower pretibial area and a small abrasions are noted. Blood cultures status received. Patient has been started on cefepime. Review of Systems All systems: negative Constitutional: Reports chills, Reports fatigue, Reports malaise, Reports poor appetite, Reports weakness, Reports weight loss, Denies anorexia, Denies fever Eyes: denies blurred vision, denies pain Ears, nose, mouth and throat: Denies dysphagia, Denies headache, Denies mouth pain, Denies sore throat, Denies vertigo Cardiovascular: Denies chest pain, Denies decreased exercise tolerance, Denies dyspnea on exertion, Denies edema, Denies leg edema, Denies lightheadedness, Den ies shortness of breath, Denies syncope Respiratory: Reports cough, Reports cough with sputum Gastrointestinal: Denies abdominal pain, Denies diarrhea, Denies melena, Denies nausea, Denies vomiting Genitourinary: Denies dysuria, Denies hematuria, Denies urgency, Denies urinary frequency Musculoskeletal: Denies frequent falls, Denies gait dysfunction, Denies myalgias Musculoskeletal: left: ankle pain, ankle swelling, foot pain, foot swelling Integumentary: Denies pruritus, Denies rash, Denies wounds Neurological: Denies aphasia, Denies change in mentation, Denies numbness, Denies seizures, Denies weakness Psychiatric: Denies anxiety, Denies depression Endocrine: Denies fatigue, Denies weight change Past Medical History Past Medical History: Hypertension Additional Past Medical History / Comment(s): anemia, History of Any Multi-Drug Resistant Organisms: None Reported Past Surgical History: Back Surgery, Hysterectomy Past Anesthesia/Blood Transfusion Reactions: No Reported Reaction Past Psychological History: No Psychological Hx Reported Smoking Status: Never smoker Past Alcohol Use History: None Reported Additional Past Alcohol Use History / Comment(s): The patient is a lifelong nonsmoker. She denies any marijuana, illicit drug use or alcohol use. She was at home with her . There are no pets in the home. 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 Past Drug Use History: None Reported - Past Family History Mother Family Medical History: No Reported History Medications and Allergies Home Medications Medication Instructions Recorded Confirmed Type Triamterene-Hctz 75-50Mg [Maxzide 1 tab PO DAILY 08/24/18 08/24/18 History 75-50] Loratadine-Pseudoeph 5-120 mg 1 each PO Q12HR #10 tab.er.12h 08/25/18 Rx [Claritin-D 12 Hour] Allergies Allergy/AdvReac Type Severity Reaction Status Date / Time No Known Allergies Allergy Verified 08/24/18 13:03 Physical Exam Vitals: Vital Signs Temp Pulse Pulse Resp BP Pulse Ox 08/27/18 05:23 99.7 F H 76 16 147/75 95 08/26/18 21:25 99.6 F 08/26/18 20:30 102.0 F H 76 16 126/67 94 L 08/26/18 20:16 18 08/26/18 15:01 75 82 17 08/26/18 11:52 98.3 F 82 17 128/67 98 Intake and Output 08/26/18 08/27/18 08/27/18 22:59 06:59 14:59 Intake Total 210 460 Balance 210 460 Intake: IV 60 160 0.9@20 60 160 Intake, IV Titration 100 Amount Cefepime 2 gm In Sodium 100 Chloride 0.9% 100 ml @ 200 mls/hr IVPB Q12H [facility] Rx#:[id number] Oral 150 200 Other: Voiding Method Toilet Toilet Bedside Commode Bedside Commode # Voids 1 300 Gen: This is a 77-year-old female. She is resting in bed and appears to be comfortable and in no acute distress. HEENT: Head is atraumatic, normocephalic. Pupils equal, round. Sclerae is anicteric. NECK: Supple. No JVD. No lymphadenopathy. No thyromegaly. LUNGS: Clear to auscultation. No wheezes or rhonchi. No intercostal retrac tions. HEART: Regular rate and rhythm. No murmur. ABDOMEN: Soft. Bowel sounds are present. No masses. No tenderness. EXTREMITIES: No pedal edema. No calf tenderness. There is erythema and edema to the left plantar surface medial foot and ankle. Warmth is noted. No open wounds. NEUROLOGICAL: Patient is awake, alert and oriented x3. Cranial nerves 2 through 12 are grossly intact. Results Results: Laboratory Results WBC 3.5 k/uL (3.8-10.6) L 08/27/18 08:02 RBC 2.50 m/uL (3.80-5.40) L 08/27/18 08:02 Hgb 7.5 gm/dL (11.4-16.0) L 08/27/18 08:02 Hct 23.1 % (34.0-46.0) L 08/27/18 08:02 MCV 92.5 fL (80.0-100.0) 08/27/18 08:02 MCH 29.9 pg (25.0-35.0) 08/27/18 08:02 MCHC 32.3 g/dL (31.0-37.0) 08/27/18 08:02 RDW 17.1 % (11.5-15.5) H 08/27/18 08:02 Plt Count 106 k/uL (150-450) L 08/27/18 08:02 Neutrophils % (Manual) 54 % 08/25/18 07:45 Band Neutrophils % 2 % 08/25/18 07:45 Lymphocytes % (Manual) 21 % 08/25/18 07:45 Monocytes % (Manual) 3 % 08/25/18 07:45 Eosinophils % (Manual) 8 % 08/25/18 07:45 Metamyelocytes % 2 % 08/25/18 07:45 Myelocytes % 7 % 08/25/18 07:45 Promyelocytes % 1 % 08/25/18 07:45 Blast Cells % 4 % H* 08/25/18 07:45 Neutrophils # (Manual) 1.80 k/uL (1.3-7.7) 08/25/18 07:45 Lymphocytes # (Manual) 0.69 k/uL (1.0-4.8) L 08/25/18 07:45 Monocytes # (Manual) 0.10 k/uL (0-1.0) 08/25/18 07:45 Eosinophils # (Manual) 0.26 k/uL (0-0.7) 08/25/18 07:45 Metamyelocytes # (Man) 0.07 k/uL (0) H 08/25/18 07:45 Myelocytes # (Manual) 0.23 k/uL (0) H 08/25/18 07:45 Promyelocytes # (Man) 0.03 k/uL (0) H 08/25/18 07:45 Blast Cells # (Man) 0.13 k/uL (0) H 08/25/18 07:45 Nucleated RBCs 1 /100 WBC (0-0) H 08/25/18 07:45 Differential Comment 08/24/18 13:40 Manual Slide Review Performed 08/25/18 07:45 Pathologist Review See comment A 08/25/18 07:45 Polychromasia Present 08/25/18 07:45 Hypochromasia Slight 08/25/18 07:45 Poikilocytosis Slight 08/25/18 07:45 Anisocytosis Slight 08/25/18 07:45 PT 10.4 sec (9.0-12.0) 08/24/18 13:40 INR 1.0 (<1.2) 08/24/18 13:40 APTT 24.5 sec (22.0-30.0) 08/24/18 13:40 Sodium 140 mmol/L (137-145) 08/25/18 07:45 Potassium 3.3 mmol/L (3.5-5.1) L 08/25/18 07:45 Chloride 110 mmol/L (98-107) H 08/25/18 07:45 Carbon Dioxide 24 mmol/L (22-30) 08/25/18 07:45 Anion Gap 6 mmol/L 08/25/18 07:45 BUN 20 mg/dL (7-17) H 08/25/18 07:45 Creatinine 0.73 mg/dL (0.52-1.04) 08/25/18 07:45 Est GFR (CKD-EPI)AfAm >90 (>60 ml/min/1.73 sqM) 08/25/18 07:45 Est GFR (CKD-EPI)NonAf 81 (>60 ml/min/1.73 sqM) 08/25/18 07:45 Glucose 119 mg/dL (74-99) H 08/25/18 07:45 Calcium 8.9 mg/dL (8.4-10.2) 08/25/18 07:45 Phosphorus 4.6 mg/dL (2.5-4.5) H 08/24/18 13:40 Magnesium 1.6 mg/dL (1.6-2.3) 08/24/18 13:40 Iron 25 ug/dL (50-170) L 08/24/18 16:20 TIBC 193 ug/dL (228-460) L 08/24/18 16:20 Iron Saturation 12.95 (12.00-45.00) 08/24/18 16:20 Ferritin 431.9 ng/mL (10.0-291.0) H 08/24/18 16:20 Total Bilirubin 0.6 mg/dL (0.2-1.3) 08/25/18 07:45 AST 16 U/L (14-36) 08/25/18 07:45 ALT 26 U/L (9-52) 08/25/18 07:45 Alkaline Phosphatase 78 U/L (38-126) 08/25/18 07:45 Lactate Dehydrogenase 532 U/L (313-618) 08/27/18 08:02 Troponin I <0.012 ng/mL (0.000-0.034) 08/24/18 13:40 Total Protein 6.2 g/dL (6.3-8.2) L 08/25/18 07:45 Albumin 2.7 g/dL (3.5-5.0) L 08/25/18 07:45 Vitamin B12 1970.0 pg/mL (200.0-944.0) H 08/24/18 16:20 Methylmalonic Acid 0.27 umol/L (<0.40) 08/24/18 16:20 Homocysteine 15.43 umol/L (4.00-14.00) H 08/24/18 16:20 TSH 0.924 mIU/L (0.465-4.680) 08/24/18 13:40 Urine Color Yellow 08/27/18 03:45 Urine Appearance Clear (Clear) 08/27/18 03:45 Urine pH 6.5 (5.0-8.0) 08/27/18 03:45 Ur Specific [place] 1.007 (1.001-1.035) 08/27/18 03:45 Urine Protein 3+ (Negative) H 08/27/18 03:45 Urine Glucose (UA) Negative (Negative) 08/27/18 03:45 Urine Ketones Negative (Negative) 08/27/18 03:45 Urine Blood Trace (Negative) H 08/27/18 03:45 Urine Nitrite Negative (Negative) 08/27/18 03:45 Urine Bilirubin Negative (Negative) 08/27/18 03:45 Urine Urobilinogen <2.0 mg/dL (<2.0) 08/27/18 03:45 Ur Leukocyte Esterase Trace (Negative) H 08/27/18 03:45 Urine RBC 1 /hpf (0-5) 08/27/18 03:45 Urine WBC 2 /hpf (0-5) 08/27/18 03:45 Ur Squamous Epith Cells 1 /hpf (0-4) 08/27/18 03:45 Urine Bacteria Few /hpf (None) H 08/27/18 03:45 Hyaline Casts 8 /lpf (0-2) H 08/24/18 15:19 Urine Mucus Rare /hpf (None) H 08/27/18 03:45 Stool Occult Blood Negative (Negative) 08/24/18 15:01 Influenza Type A RNA Not Detected (Not Detectd) 08/26/18 21:30 Influenza Type B (PCR) Not Detected (Not Detectd) 08/26/18 21:30 Blood Type O Positive 08/24/18 13:40 Blood Type Confirm O Positive 08/24/18 14:46 Blood Type Recheck CABO Indicated 08/24/18 13:40 Antibody Screen NEGATIVE 08/24/18 13:40 Crossmatch See Detail 08/24/18 13:40 Spec Expiration Date 08/27/2018 - 233908/24/18 13:40 CBC & Chem 7: 08/27/18 08:02 08/25/18 07:45 Labs: Abnormal Lab Results - Last 24 Hours (Table) 08/27/18 08/27/18 Range/Units 03:45 08:02 WBC 3.5 L (3.8-10.6) k/uL RBC 2.50 L (3.80-5.40) m/uL Hgb 7.5 L (11.4-16.0) gm/dL Hct 23.1 L (34.0-46.0) % RDW 17.1 H (11.5-15.5) % Plt Count 106 L (150-450) k/uL Urine Protein 3+ H (Negative) Urine Blood Trace H (Negative) Ur Leukocyte Esterase Trace H (Negative) Urine Bacteria Few H (None) /hpf Urine Mucus Rare H (None) /hpf Assessment and Plan Plan: Of this is a 77-year-old female who presents to hospital with generalized symptoms of malaise, weakness, cough and weight loss with pancytopenia and now with leukopenic fever. Patient has been started on cefepime. She is scheduled for bone marrow biopsy this afternoon. We will order an x-ray of the left foot and ankle. Blood cultures status received. Continue supportive care. Further recommendations as patient progresses. The above dictated assessment and findings were discussed with Dr. Noland. The impression and plan of care have been directed as dictated. Keila Quach nurse practitioner acting as scribe for Dr. Noland.
--- NOTE | 2018-08-27 12:27 | P.PN ---
Subjective Progress Note Date: 08/27/18 Principal diagnosis: Anemia Bone marrow biopsy today with hematology. EGD/colonoscopy on hold. No GI bleeding. Hemoglobin 7.5. Platelet 106. White count 3.5. Objective - Vital Signs Vital signs: Vital Signs Temp 98.3 F 08/27/18 11:04 Pulse 81 08/27/18 11:04 Resp 16 08/27/18 11:04 BP 145/70 08/27/18 11:04 Pulse Ox 95 08/27/18 11:04 Intake & Output 08/26/18 08/27/18 08/27/18 18:59 06:59 18:59 Intake Total 260 670 Balance 260 670 Intake: IV 220 0.9@20 220 Intake, IV Titration 100 Amount Cefepime 2 gm In Sodium 100 Chloride 0.9% 100 ml @ 200 mls/hr IVPB Q12H [facility] Rx#:[id number] Oral 260 350 Other: Voiding Method Toilet Toilet Toilet Bedside Commode Bedside Commode Bedside Commode # Voids 3 300 - Exam General appearance: The patient is alert, oriented, in no acute distress. HET: Head is normocephalic and atraumatic. Pupils are equal and reactive. Oropharynx is clear without lesions. Neck: Supple without lymphadenopathy. Trachea midline. Heart: S1 S2. Regular rate and rhythm. Lungs: No crackles or wheezes are heard. Abdomen: Soft, nontender, nondistended with bowel sounds. No peritoneal signs. No palpable organomegaly or masses. Extremities: Normal skin color and turgor. No cyanosis, rash, ulceration, clubbing, or edema. Radial and pedal pulses are 2/4 bilaterally. Neurological: No focal deficits. Strength and sensation are grossly intact. - Labs CBC & Chem 7: 08/27/18 08:02 08/25/18 07:45 Labs: Abnormal Lab Results - Last 24 Hours (Table) 08/27/18 08/27/18 Range/Units 03:45 08:02 WBC 3.5 L (3.8-10.6) k/uL RBC 2.50 L (3.80-5.40) m/uL Hgb 7.5 L (11.4-16.0) gm/dL Hct 23.1 L (34.0-46.0) % RDW 17.1 H (11.5-15.5) % Plt Count 106 L (150-450) k/uL Urine Protein 3+ H (Negative) Urine Blood Trace H (Negative) Ur Leukocyte Esterase Trace H (Negative) Urine Bacteria Few H (None) /hpf Urine Mucus Rare H (None) /hpf Assessment and Plan (1) Symptomatic anemia Narrative/Plan: 77-year-old female presents with symptomatic normocytic mildly hypochromic anemia with change in appetite over the last few weeks without abdominal pain, overt bleeding such as hematemesis hematochezia or melena. CBC differential s hows evidence of bicytopenia with blast cells possible underlying bone marrow pathology possible MDS. Anemia secondary to an underlying gastrointestinal source cannot be excluded. No history of EGD colonoscopy screening. Current Visit: Yes Status: Acute Code(s): D64.9 - ANEMIA, UNSPECIFIED SNOMED Code(s): 689705665 Plan: 1. EGD colonoscopy recommended but will discuss further after bone marrow is completed by hematology this can be pursued as an outpatient. Case was discussed with Dr. Aguilar. Bone marrow biopsy today. CBC monitoring. Assessment and plan a care discussed with Dr. Seals
--- NOTE | 2018-08-27 12:37 | P.PCN ---
Date of Procedure: 08/27/18 Preoperative Diagnosis: Pancytopenia, abnormal peripheral smear Postoperative Diagnosis: Same Procedure(s) Performed: Bone marrow aspiration biopsy Anesthesia: MAC Surgeon: Glynn Aguilar Psychiatric Social Worker Supervisor #1: Stated None Estimated Blood Loss (ml): 1 Pathology: other Condition: stable Disposition: floor Indications for Procedure: New onset pancytopenia, abnormal peripheral smear with left shift including blasts Operative Findings: Adequate samples Description of Procedure: The procedure was explained in detail to the patient and her family on the floor. Informed consent was obtained on the floor. She presented to the outpatient endoscopy suite. She was placed in the left that'll determine disposition. The area over both posterior hilar crest was cleaned and prepped with chlorhexidine and sterile draping. IV sedation was then initiated. Local anesthesia was administered to the right posteriorly crest. A Jamshidi needle was then inserted and bone marrow aspirate and biopsy obtained. On withdrawal of the needle hemostasis was easily achieved. Blood loss was minimal, and recovery from sedation was satisfactory. She appeared to have tolerated the procedure well without any obvious immediate complications.
--- NOTE | 2018-08-27 12:40 | P.PN ---
Subjective Progress Note Date: 08/27/18 The patient feels about the same. She denies any new complaints such as fevers or chills. No nausea or vomiting. She continues to have a cough with mild expectoration. Generalized weakness and malaise is persistent Objective - Vital Signs Vital signs: Vital Signs Temp 98.3 F 08/27/18 11:04 Pulse 81 08/27/18 11:04 Resp 16 08/27/18 11:04 BP 145/70 08/27/18 11:04 Pulse Ox 95 08/27/18 11:04 Intake & Output 08/26/18 08/27/18 08/27/18 18:59 06:59 18:59 Intake Total 260 670 100 Balance 260 670 100 Intake: IV 220 100 0.9@20 220 Intake, IV Titration 100 Amount Cefepime 2 gm In Sodium 100 Chloride 0.9% 100 ml @ 200 mls/hr IVPB Q12H [facility] Rx#:[id number] Oral 260 350 Other: Voiding Method Toilet Toilet Toilet Bedside Commode Bedside Commode Bedside Commode # Voids 3 300 - Constitutional General appearance: Present: no acute distress - EENT Eyes: Present: EOMI ENT: Present: hearing grossly normal, normal oropharynx - Respiratory Respiratory: bilateral: CTA - Cardiovascular Rhythm: regular Heart sounds: normal: S1, S2 - Gastrointestinal General gastrointestinal: Present: normal bowel sounds, soft - Integumentary Integumentary: Present: normal - Neurologic Neurologic: Present: CNII-XII intact - Musculoskeletal Musculoskeletal: Present: generalized weakness, strength equal bilaterally - Psychiatric Psychiatric: Present: A&O x's 3, appropriate affect - Labs CBC & Chem 7: 08/27/18 08:02 08/25/18 07:45 Labs: Abnormal Lab Results - Last 24 Hours (Table) 08/27/18 08/27/18 Range/Units 03:45 08:02 WBC 3.5 L (3.8-10.6) k/uL RBC 2.50 L (3.80-5.40) m/uL Hgb 7.5 L (11.4-16.0) gm/dL Hct 23.1 L (34.0-46.0) % RDW 17.1 H (11.5-15.5) % Plt Count 106 L (150-450) k/uL Urine Protein 3+ H (Negative) Urine Blood Trace H (Negative) Ur Leukocyte Esterase Trace H (Negative) Urine Bacteria Few H (None) /hpf Urine Mucus Rare H (None) /hpf Assessment and Plan (1) Pancytopenia Narrative/Plan: The patient's labs for pancytopenia do not show any evidence of deficiency state. Blood counts are fairly stable other than mild decrease in hemoglobin from 8.1 to 7.5. The patient will proceed with bone marrow aspiration and biopsy today. The procedure was explained again to the patient. She had no specific questions. Continue to monitor counts, with transfusion as needed. The case has been discussed with gastroenterology, who were consulted for endoscopic workup for her anemia. As the patient has no evidence of iron deficiency, and clinical picture is highly suggestive of a primary marrow disorder, endoscopy was not felt to be indicated. The procedure will be canceled. Current Visit: Yes Status: Acute Code(s): D61.818 - OTHER PANCYTOPENIA SNOMED Code(s): 187528084 (2) Weakness Narrative/Plan: Related to the above. She is fairly stable in this regard. Continue to monitor. Current Visit: Yes Status: Acute Code(s): R53.1 - WEAKNESS SNOMED Code(s): 36133673
[2018-08-27 13:21] LABS: Band Neutrophils % 2 %; Blast Cells # (M) 0.04 k/uL (0); Eosinophils # (M) 0.18 k/uL (0-0.7); Lymphocytes # (M) 0.74 k/uL (1.0-4.8); Metamyelocytes # (M) 0.04 k/uL (0); Metamyelocytes % 1 %; Monocytes # (M) 0.25 k/uL (0-1.0); Myelocytes # (M) 0.07 k/uL (0); Myelocytes % 2 %; Neutrophils % (M) 62 %; Nucleated Red Blood Cells 0 /100 WBC (0-0); Rouleaux Present; Total Cells Counted 200
[2018-08-27] MEDS: ACETAMINOPHEN TAB 325 MG TAB PO PRN ×2 (15:28→23:06)
[2018-08-27 17:58] LABS: Iron Saturation 9.09 (12.00-45.00); Protein, Total 5.3 g/dL (6.2-8.2); Rheumatoid Factor 8 IU/mL (0-15)
[2018-08-27] MEDS ORDERED: NAPROXEN 250 MG TAB PO PRN (18:25)
[2018-08-27] MEDS ORDERED: NAPROXEN 250 MG TAB PO STA (18:25)
--- NOTE | 2018-08-27 21:54 | P.CON ---
Consult Note - . Consult date: 08/27/18 Assessment/Plan:: This is a 77-year-old female gives history of having a cough with phlegm production, generalized weakness, generalized malaise over the past couple weeks. She denies having any fever, no chest pain, no abdominal pain, no nausea, vomiting, diarrhea. She came into [facility] emergency center for evaluation. Her white count was at 3.3 with hemoglobin 8.1 and platelet count 97, blast for. Smear showed possible MDS or other myelopthisic process involving the bone marrow. Homocysteine 15.43, albumin 2.7. Urinalysis was clear with nitrate negative and leukoesterase trace. Influenza testing done on August 24 and August 26 are all negative. Patient developed fever 102 on August 26. She has been seen by GI for anemia and need for possible EGD colonoscopy after bone marrow biopsy. Patient has been seen by Dr. Aguilar for pancytopenia and bone marrow biopsy is scheduled for today at noon. CAT scan of the chest abdomen and pelvis showed a 4 mm left lower lobe subpleural pulmonary nodule. Borderline portal vein and mildly enlarged caliber to the splenic vein, nonspecific seen in the setting of portal venous hypertension. Mild splenomegaly. Nonspecific 7 mm lesion in the right kidney may represent debris filled cyst. Focal bowel wall thickening along the proximal jejunum may represent collapsed bowel wall. Incidentally redundant sigmoid colon extending all the way to the right side of the lower abdomen. Patient states she has had weight loss of about 8 pounds and at this point her appetite is good. Patient is noted to have erythema to the left foot and she denies having any injury to the area. She states she was scratching the area to the lower pretibial area and a small abrasions are noted. Blood cultures status received. Patient has been started on cefepime.Please see the consult note is dictated by nurse practitioner Keila Main. Left foot and ankle area. X-rays of been performed without evidence of fracture or dislocation by concerns to potential gouty changes. 77 -year-old woman presents to Hospital feeling quite poorly. As noted has evidence of extensive pancytopenia and developed fever for which the infectious diseases consultation was requested. At the time of the call cefepime was added because of a febrile neutropenia. Cultures are all process and influenza testing was negative. Bone marrow biopsy is scheduled for this afternoon to evaluate the underlying bone marrow abnormality. Concern for myelodysplastic syndrome. It is noted she's having some significant discomfort to the Left- footed ankle. X-rays have been obtained with concerns the possibility of gouty arthritis no evidence of fracture or dislocation was noted. Given the significant discomfort she is having in this area colchicine can be added to determine if this can allow some improvement to the distinct discomfort she is having in this area. Silvadene and a gentle wrap can be applied to see if this can improve the discomfort she is having at this site. Uric acid to be evaluated. I agree with evaluation, assessment and plan as dictated by nurse practitioner Mrs. Keila Quach.
--- NOTE | 2018-08-27 22:34 | PN ---
PROGRESS NOTE DATE OF SERVICE: 08/27/2018 PRESENTING COMPLAINT: Tired. INTERVAL HISTORY: Patient admitted with viral upper respiratory tract infection and symptomatic anemia. The patient did have a bone marrow done today. Dr. Aguilar's opinion is that the patient probably does not need any endoscopy at this point. The patient did spike a fever last night. She was harrison cultured. Feels a bit better. Lying in bed. REVIEW OF SYSTEMS: Done for constitutional, cardiovascular, GI, pulmonary; relevant findings as above. CURRENT MEDICATIONS: Reviewed. They include Claritin-D. PHYSICAL EXAMINATION: T-max 102. Patient did also have a fever this afternoon. Pulse 88, respiration 16, blood pressure 116/72, pulse ox 93% on room air. GENERAL APPEARANCE: Lying in bed, tired-appearing. EYES: Pupils equal. Conjunctivae normal. NECK: JVD not raised. Mass not palpable. RESPIRATORY: Effort normal. LUNGS: Fair air entry. CARDIOVASCULAR: First and second sounds normal. No edema. ABDOMEN: Soft, non-tender. Liver and spleen not palpable. PSYCHIATRY: Alert and oriented x3. Mood and affect normal. INVESTIGATIONS: White count 3.5, hemoglobin 7.5. Rheumatoid factor 8. JUAN screen negative. UA unremarkable. ASSESSMENT: 1. Fever, persistent; could be from underlying viral infection. Cultures are pending. UA is unremarkable. 2. Hematological picture suggestive of myelodysplastic syndrome, status post bone marrow. 3. Symptomatic anemia. Patient did require blood transfusion. 4. Essential hypertension. PLAN: Patient's fever could have been can also be delayed blood transfusion reaction. Unclear at this time, although infectious workup is coming back negative. Will follow closely. ID is already on the case. MMODL / IJN: [id number] /
[2018-08-27] MEDS: COLCHICINE 0.6 MG EACH PO SCH (23:07)
[2018-08-28 08:08] LABS: Anisocytosis Slight; HCT 22.3 % (34.0-46.0); HGB 7.2 gm/dL (11.4-16.0); Hypochromasia Slight; MCHC 32.1 g/dL (31.0-37.0); MCV 93.4 fL (80.0-100.0); Mean Platelet Volume 8.9; Poikilocytosis Slight; RBC 2.39 m/uL (3.80-5.40); RDW 17.3 % (11.5-15.5); WBC 3.6 k/uL (3.8-10.6)
[2018-08-28] MEDS: COLCHICINE 0.6 MG EACH PO SCH (08:48)
[2018-08-28] MEDS: LORATADINE-PSEUDOEPH 5-120 MG 1 EACH TAB.ER.12H PO SCH (08:49)
[2018-08-28 09:21] LABS: Band Neutrophils % 3 %; Blast Cells # (M) 0.04 k/uL (0); Eosinophils # (M) 0.18 k/uL (0-0.7); Lymphocytes # (M) 0.79 k/uL (1.0-4.8); Metamyelocytes # (M) 0.11 k/uL (0); Metamyelocytes % 3 %; Monocytes # (M) 0.18 k/uL (0-1.0); Myelocytes # (M) 0.11 k/uL (0); Myelocytes % 3 %; Neutrophils % (M) 59 %; Nucleated Red Blood Cells 0 /100 WBC (0-0); Total Cells Counted 200
[2018-08-28 09:22] LABS: Platelet Count 79 k/uL (150-450); Rouleaux Present
[2018-08-28 12:20] VITALS: TEMP 98.4
[2018-08-28] MEDS ORDERED: NAPROXEN 250 MG TAB PO PRN (12:30)
[2018-08-28] MEDS ORDERED: NAPROXEN 250 MG TAB PO SCH (12:30)
[2018-08-28 13:07] VITALS: BP 131/73; PULSE 76; RESP 18
--- NOTE | 2018-08-28 13:39 | US ---
EXAMINATION TYPE: US venous doppler duplex LE LT DATE OF EXAM: 08/28/2018 1:32 PM COMPARISON: NONE CLINICAL HISTORY: edema and pain . SIDE PERFORMED: Left TECHNIQUE: The lower extremity deep venous system is examined utilizing real time linear array sonog prasanth with graded compression, doppler sonography and color-flow sonography. VESSELS IMAGED: External Iliac Vein (EIV) Common Femoral Vein Deep Femoral Vein Greater Saphenous Vein * Femoral Vein Popliteal Vein Proximal Calf Veins (* superficial vessels) Rouleaux flow noted throughout left side. Left Leg: Negative for DVT IMPRESSION: No evidence of DVT at this time.
[2018-08-28] MEDS: CEFEPIME 2 GM in SODIUM CHLORIDE 0.9% 100 ML IVPB SCH (13:58)
--- NOTE | 2018-08-28 14:44 | P.PN ---
Subjective Progress Note Date: 08/28/18 This is a 77-year-old female gives history of having a cough with phlegm production, generalized weakness, generalized malaise over the past couple weeks. She denies having any fever, no chest pain, no abdominal pain, no nausea, vomiting, diarrhea. She came into [facility] emergency center for evaluation. Her white count was at 3.3 with hemoglobin 8.1 and platelet count 97, blast for. Smear showed possible MDS or other myelopthisic process involving the bone marrow. Homocysteine 15.43, albumin 2.7. Urinalysis was clear with nitrate negative and leukoesterase trace. Influenza testing done on August 24 and August 26 are all negative. Patient developed fever 102 on August 26. She has been seen by GI for anemia and need for possible EGD colonoscopy after bone marrow biopsy. Patient has been seen by Dr. Aguilar for pancytopenia and bone marrow biopsy is scheduled for today at noon. CAT scan of the chest abdomen and pelvis showed a 4 mm left lower lobe subpleural pulmonary nodule. Borderline portal vein and mildly enlarged caliber to the splenic vein, nonspecific seen in the setting of portal venous hypertension. Mild splenomegaly. Nonspecific 7 mm lesion in the right kidney may represent debris filled cyst. Focal bowel wall thickening along the proximal jejunum may represent collapsed bowel wall. Incidentally redundant sigmoid colon extending all the way to the right side of the lower abdomen. Patient states she has had weight loss of about 8 pounds and at this point her appetite is good. Patient is noted to have erythema to the left foot and she denies having any injury to the area. She states she was scratching the area to the lower pretibial area and a small abrasions are noted. Blood cultures status received. Patient has been started on cefepime. 08/28/2018 patient is feeling considerably better today. Is becoming somewhat anxious to discharge to home. Her shortness of breath is improved. Her pain to her left foot is improved but certainly not resolved. Bone marrow aspiration is been performed and results are pending. Objective - Vital Signs Vital signs: Vital Signs Temp 98.4 F 08/28/18 12:19 Pulse 76 08/28/18 11:35 Resp 18 08/28/18 11:35 BP 131/73 08/28/18 11:35 Pulse Ox 96 03/22/19 11:35 Intake & Output 08/27/18 08/28/18 08/28/18 18:59 06:59 18:59 Intake Total 200 540 300 Output Total 100 400 Balance 100 540 -100 Intake: IV 100 Intake, IV Titration 100 Amount Cefepime 2 gm In Sodium 100 Chloride 0.9% 100 ml @ 200 mls/hr IVPB Q12H [facility] Rx#:[id number] Oral 540 300 Output: Urine 100 400 Other: Voiding Method Toilet Bedside Commode Bedside Commode Incontinent # Voids 2 1 - Exam Gen: This is a 77-year-old female. She is resting in bed and appears to be comfortable and in no acute distress. HEENT: Head is atraumatic, normocephalic. Pupils equal, round. Sclerae is anicteric. NECK: Supple. No JVD. No lymphadenopathy. No thyromegaly. LUNGS: Clear to auscultation. No wheezes or rhonchi. No intercostal retractions. HEART: Regular rate and rhythm. No murmur. ABDOMEN: Soft. Bowel sounds are present. No masses. No tenderness. EXTREMITIES: No pedal edema. No calf tenderness. There is erythema and edema to the left plantar surface medial foot and ankle. Warmth is noted. No open wounds. Less tender today nothing is draining, able to bear weight which is improved from admission NEUROLOGICAL: Patient is awake, alert and oriented x3 - Labs CBC & Chem 7: 08/28/18 07:00 08/25/18 07:45 Labs: Abnormal Lab Results - Last 24 Hours (Table) 08/27/18 08/27/18 08/28/18 Range/Units 08:02 08:02 07:00 WBC 3.6 L (3.8-10.6) k/uL RBC 2.39 L (3.80-5.40) m/uL Hgb 7.2 L (11.4-16.0) gm/dL Hct 22.3 L (34.0-46.0) % RDW 17.3 H (11.5-15.5) % Plt Count 79 L (150-450) k/uL Blast Cells % 1 H* % Lymphocytes # (Manual) 0.79 L (1.0-4.8) k/uL Metamyelocytes # (Man) 0.11 H (0) k/uL Myelocytes # (Manual) 0.11 H (0) k/uL Blast Cells # (Man) 0.04 H (0) k/uL Iron 15 L (50-170) ug/dL TIBC 165 L (228-460) ug/dL Iron Saturation 9.09 L (12.00-45.00) Ferritin 504.3 H (10.0-291.0) ng/mL Total Protein (PEP) 5.3 L (6.2-8.2) g/dL Vitamin B12 1323.0 H (200.0-944.0) pg/mL RBC Folate 1,625 H (280 - 791) ng/mL Free [place] LC, Quant 7.76 H (0.33-1.94) mg/dL Free Lambda LC, Quant 4.60 H (0.57-2.63) mg/dL Microbiology - Last 24 Hours (Table) 08/26/18 22:20 Blood Culture - Preliminary Blood No Growth after 24 hours Laboratory Results WBC 3.6 k/uL (3.8-10.6) L 08/28/18 07:00 RBC 2.39 m/uL (3.80-5.40) L 08/28/18 07:00 Hgb 7.2 gm/dL (11.4-16.0) L 08/28/18 07:00 Hct 22.3 % (34.0-46.0) L 08/28/18 07:00 MCV 93.4 fL (80.0-100.0) 08/28/18 07:00 MCH 30.0 pg (25.0-35.0) 08/28/18 07:00 MCHC 32.1 g/dL (31.0-37.0) 08/28/18 07:00 RDW 17.3 % (11.5-15.5) H 08/28/18 07:00 Plt Count 79 k/uL (150-450) L 08/28/18 07:00 Neutrophils % (Manual) 59 % 08/28/18 07:00 Band Neutrophils % 3 % 08/28/18 07:00 Lymphocytes % (Manual) 22 % 08/28/18 07:00 Monocytes % (Manual) 5 % 08/28/18 07:00 Eosinophils % (Manual) 5 % 08/28/18 07:00 Metamyelocytes % 3 % 08/28/18 07:00 Myelocytes % 3 % 08/28/18 07:00 Promyelocytes % 1 % 08/25/18 07:45 Blast Cells % 1 % H* 08/28/18 07:00 Neutrophils # (Manual) 2.20 k/uL (1.3-7.7) 08/28/18 07:00 Lymphocytes # (Manual) 0.79 k/uL (1.0-4.8) L 08/28/18 07:00 Monocytes # (Manual) 0.18 k/uL (0-1.0) 08/28/18 07:00 Eosinophils # (Manual) 0.18 k/uL (0-0.7) 08/28/18 07:00 Metamyelocytes # (Man) 0.11 k/uL (0) H 08/28/18 07:00 Myelocytes # (Manual) 0.11 k/uL (0) H 08/28/18 07:00 Promyelocytes # (Man) 0.03 k/uL (0) H 08/25/18 07:45 Blast Cells # (Man) 0.04 k/uL (0) H 08/28/18 07:00 Nucleated RBCs 0 /100 WBC (0-0) 08/28/18 07:00 Differential Comment 08/24/18 13:40 Manual Slide Review Performed 08/28/18 07:00 Pathologist Review See comment A 08/25/18 07:45 Polychromasia Present 08/25/18 07:45 Hypochromasia Slight 08/28/18 07:00 Poikilocytosis Slight 08/28/18 07:00 Anisocytosis Slight 08/28/18 07:00 Rouleaux Present 08/28/18 07:00 Retic Count 1.9 % (0.5-2.0) 08/27/18 08:02 PT 10.4 sec (9.0-12.0) 08/24/18 13:40 INR 1.0 (<1.2) 08/24/18 13:40 APTT 24.5 sec (22.0-30.0) 08/24/18 13:40 Sodium 140 mmol/L (137-145) 08/25/18 07:45 Potassium 3.3 mmol/L (3.5-5.1) L 08/25/18 07:45 Chloride 110 mmol/L (98-107) H 08/25/18 07:45 Carbon Dioxide 24 mmol/L (22-30) 08/25/18 07:45 Anion Gap 6 mmol/L 08/25/18 07:45 BUN 20 mg/dL (7-17) H 08/25/18 07:45 Creatinine 0.73 mg/dL (0.52-1.04) 08/25/18 07:45 Est GFR (CKD-EPI)AfAm >90 (>60 ml/min/1.73 sqM) 08/25/18 07:45 Est GFR (CKD-EPI)NonAf 81 (>60 ml/min/1.73 sqM) 08/25/18 07:45 Glucose 119 mg/dL (74-99) H 08/25/18 07:45 Uric Acid 5.6 mg/dL (3.7-7.4) 08/28/18 07:00 Calcium 8.9 mg/dL (8.4-10.2) 08/25/18 07:45 Phosphorus 4.6 mg/dL (2.5-4.5) H 08/24/18 13:40 Magnesium 1.6 mg/dL (1.6-2.3) 08/24/18 13:40 Iron 15 ug/dL (50-170) L 08/27/18 08:02 TIBC 165 ug/dL (228-460) L 08/27/18 08:02 Iron Saturation 9.09 (12.00-45.00) L 08/27/18 08:02 Ferritin 504.3 ng/mL (10.0-291.0) H 08/27/18 08:02 Total Bilirubin 0.6 mg/dL (0.2-1.3) 08/25/18 07:45 AST 16 U/L (14-36) 08/25/18 07:45 ALT 26 U/L (9-52) 08/25/18 07:45 Alkaline Phosphatase 78 U/L (38-126) 08/25/18 07:45 Lactate Dehydrogenase 532 U/L (313-618) 08/27/18 08:02 Troponin I <0.012 ng/mL (0.000-0.034) 08/24/18 13:40 Total Protein 6.2 g/dL (6.3-8.2) L 08/25/18 07:45 Total Protein (PEP) 5.3 g/dL (6.2-8.2) L 08/27/18 08:02 Albumin 2.7 g/dL (3.5-5.0) L 08/25/18 07:45 Vitamin B12 1323.0 pg/mL (200.0-944.0) H 08/27/18 08:02 Methylmalonic Acid 0.27 umol/L (<0.40) 08/24/18 16:20 RBC Folate 1,625 ng/mL (280 - 791) H 08/27/18 08:02 Homocysteine 15.43 umol/L (4.00-14.00) H 08/24/18 16:20 TSH 0.924 mIU/L (0.465-4.680) 08/24/18 13:40 Urine Color Yellow 08/27/18 03:45 Urine Appearance Clear (Clear) 08/27/18 03:45 Urine pH 6.5 (5.0-8.0) 08/27/18 03:45 Ur Specific [place] 1.007 (1.001-1.035) 08/27/18 03:45 Urine Protein 3+ (Negative) H 08/27/18 03:45 Urine Glucose (UA) Negative (Negative) 08/27/18 03:45 Urine Ketones Negative (Negative) 08/27/18 03:45 Urine Blood Trace (Negative) H 08/27/18 03:45 Urine Nitrite Negative (Negative) 08/27/18 03:45 Urine Bilirubin Negative (Negative) 08/27/18 03:45 Urine Urobilinogen <2.0 mg/dL (<2.0) 08/27/18 03:45 Ur Leukocyte Esterase Trace (Negative) H 08/27/18 03:45 Urine RBC 1 /hpf (0-5) 08/27/18 03:45 Urine WBC 2 /hpf (0-5) 08/27/18 03:45 Ur Squamous Epith Cells 1 /hpf (0-4) 08/27/18 03:45 Urine Bacteria Few /hpf (None) H 08/27/18 03:45 Hyaline Casts 8 /lpf (0-2) H 08/24/18 15:19 Urine Mucus Rare /hpf (None) H 08/27/18 03:45 Stool Occult Blood Negative (Negative) 08/24/18 15:01 Rheumatoid Factor 8 IU/mL (0-15) 08/27/18 08:02 JUAN Screen NEGATIVE (NEGATIVE) 08/27/18 08:02 Free [place] LC, Quant 7.76 mg/dL (0.33-1.94) H 08/27/18 08:02 Free Lambda LC, Quant 4.60 mg/dL (0.57-2.63) H 08/27/18 08:02 Influenza Type A RNA Not Detected (Not Detectd) 08/26/18 21:30 Influenza Type B (PCR) Not Detected (Not Detectd) 08/26/18 21:30 Flow Results See Pathology Report 08/27/18 12:30 Blood Type O Positive 08/24/18 13:40 Blood Type Confirm O Positive 08/24/18 14:46 Blood Type Recheck CABO Indicated 08/24/18 13:40 Antibody Screen NEGATIVE 08/24/18 13:40 Crossmatch See Detail 08/24/18 13:40 Spec Expiration Date 08/27/2018233908/24/18 13:40 Microbiology 08/26/18 22:20 Blood Blood Culture - Preliminary No Growth after 24 hours Assessment and Plan (1) Pancytopenia Narrative/Plan: 77 -year-old woman presents to Hospital feeling quite poorly. As noted has evidence of extensive pancytopenia and developed fever for which the infectious diseases consultation was requested. At the time of the call cefepime was added because of a febrile neutropenia. Cultures are all process and influenza testing was negative. Bone marrow biopsy is scheduled for this afternoon to evaluate the underlying bone marrow abnormality. Concern for myelodysplastic sy ndrome. It is noted she's having some significant discomfort to the Left-footed ankle. X-rays have been obtained with concerns the possibility of gouty arthritis no evidence of fracture or dislocation was noted. Given the significant discomfort she is having in this area colchicine can be added to determine if this can allow some improvement to the distinct discomfort she is having in this area. Silvadene and a gentle wrap can be applied to see if this can improve the discomfort she is having at this site. Uric acid to be evaluated. 08/28/2018 patient deftly feeling better today. That having any further fever or chill. In general he has no other new acute complaint. The pain to the left ankle area and the swelling have definitely improved. A baseline but is able to bear some weight which is improved from admission. The patient's pancytopenia is being evaluated with the bone marrow aspiration this is pending and we will follow up in the outpatient setting. The uric acid level was normal and the possibility of pseudogout and becomes more likely given the presentation of this painful ankle and now having some response to a single dose naproxen the initiation of colchicine. This is been discussed the primary care physician likely will go home with some further colchicine therapy until she follows up with hematology oncology regarding her bone marrow evaluation. Completion of antibiotic therapy with cefuroxime 500 mg every 12 hours for 3 days at discharge has been recommended. Current Visit: Yes Status: Acute Code(s): D61.818 - OTHER PANCYTOPENIA SNOMED Code(s): 007760262
--- NOTE | 2018-08-29 04:59 | DS ---
DISCHARGE SUMMARY DATE OF ADMISSION: August 24, 2018. DATE OF DISCHARGE: August 28, 2018. FINAL DIAGNOSES: 1. Symptomatic anemia probably from underlying myelodysplastic syndrome. 2. Essential hypertension. 3. Acute upper viral respiratory tract infection. 4. Left forefoot blunt nonspecific pain. HOSPITAL COURSE: This patient presented with symptomatic anemia, was given a unit of blood. The patient's peripheral blood smear was compatible with bone marrow abnormality. Patient did undergo a bone marrow biopsy. The patient also had upper respiratory tract infection symptoms. It was felt to be more viral in nature. The patient also got left foot pain and some left leg swelling. Negative for DVT. Foot x-ray was negative for any fracture. Uric acid was normal. The patient's pain was more in the metatarsal bone and could be a stress sprain. The patient had spiked a fever, was seen by Dr. Noland. I discussed with Dr. Noland today. There is no obvious source of infection. We will give a short course of antibiotic to complete the course. Care was discussed at length with the patient and the . Very keen to go home. They will follow up with Dr. Aguilar from Oncology. The patient did have a CT scan of chest, abdomen and pelvis. No obvious evidence of any malignancy. PROCEDURE: Bone marrow done by Dr. Aguilar. CONSULTATION: Dr. Noland infectious Disease, Dr. Aguilar from hematology. PHYSICAL EXAMINATION: On examination, temperature 98.2, pulse 76, respiratory 18, blood pressure 113/73, pulse ox 96 percent on room air. Lungs fair air entry. Cardiovascular: 1st and 2nd sounds normal. Mild tenderness of the left forefoot. INVESTIGATIONS: White count 3.6, hemoglobin 7.2, platelets 79. The patient's uric acid is normal. Ferritin was slightly high, but the patient's iron, TIBC and iron saturation was low. B12 was high and RBC folate was high. The patient's free kappa and lambda light chains were both high. Influenza A and B was negative. DISCHARGE MEDICATIONS: 1. Maxzide 75/50 1 tab p.o. daily. 2. Claritin-D 1 tab q.12h 10 tablets. 3. Ceftin 500 mg b.i.d. for 3 days. 4. Naproxen 250 mg p.o. t.i.d. 15 tablets. FOLLOWUP: Follow up with Dr. Aguilar on September 16, 2018, follow up with Dr. Helm in 3 days. Follow up with Dr. Marky Parsons on September 03, 2018. Anirudh wrap to the left foot. Discussion and discharge planning more than [address] Helm. MMJUAN / IJN: [id number] /
[2018-08-31 11:19] LABS: Albumin 1.97 g/dL (3.80-4.90); Gamma Globulin 1.44 g/dL (0.70-1.50)
[2018-08-31 11:51] LABS: Parvovirus B-19 IgG Antibodies 6.58 INDEX (<=0.90); Parvovirus B-19 IgM Antibodies 0.43 INDEX (<=0.90)
== END 2018-08-28 15:40 | disposition home or self-care (01) | DRG 810 ==
LOC: EC 12:19 → 3NMEDONC 16:04
PROVIDERS: ADMIT Hospitalist; ATTEND Hospitalist
PROC: 30233N1 Transfusion of Nonautologous Red Blood Cells into Peripheral Vein, Percutaneous Approach (ICD-10-PCS; principal; 2018-08-24)
PROC: 07DR3ZX Extraction of Iliac Bone Marrow, Percutaneous Approach, Diagnostic (ICD-10-PCS; 2018-08-27)
DX: D61.818 Other pancytopenia (principal); D70.9 Neutropenia, unspecified; N28.1 Cyst of kidney, acquired; R63.0 Anorexia; R50.81 Fever presenting with conditions classified elsewhere; D46.9 Myelodysplastic syndrome, unspecified; J06.9 Acute upper respiratory infection, unspecified; R53.1 Weakness; R63.4 Abnormal weight loss; I10 Essential (primary) hypertension; R91.1 Solitary pulmonary nodule; R16.1 Splenomegaly, not elsewhere classified; I78.1 Nevus, non-neoplastic; M25.572 Pain in left ankle and joints of left foot; B97.89 Other viral agents as the cause of diseases classified elsewhere; Z68.26 Body mass index [BMI] 26.0-26.9, adult; Z79.899 Other long term (current) drug therapy; Z90.710 Acquired absence of both cervix and uterus
CPT/HCPCS: 36415; 38222; 71046; 71260; 74177; 80053; 81001; 82272; 82607; 82728; 82747; 83090; 83540; 83550; 83615; 83735; 83883; 83921; 84100; 84165; 84443; 84484; 84550; 85025; 85045; 85610; 85730; 86038; 86334; 86431; 86747; 86850; 86900; 86901; 86920; 87040; 87502; 93005; 94640; 96360; 96361; 99285

== ENCOUNTER → 2018-09-15 | Outpatient (CLI) | payer MEDICARE, BC ==
[2018-09-15 15:20] LABS: Anisocytosis Slight; Hypochromasia Moderate; MCH 29.5 pg (25.0-35.0); Mean Platelet Volume 8.4; Platelet Count 108 k/uL (150-450); Poikilocytosis Moderate; RBC 1.99 m/uL (3.80-5.40); RDW 19.8 % (11.5-15.5)
[2018-09-15 15:38] LABS: HCT 18.3 % (34.0-46.0); HGB 5.9 gm/dL (11.4-16.0)
[2018-09-15 17:36] LABS: Band Neutrophils % 2 %; Metamyelocytes % 2 %
[2018-09-15 17:37] LABS: Metamyelocytes # (M) 0.05 k/uL (0)
[2018-09-15 17:41] LABS: Lymphocytes # (M) 1.13 k/uL (1.0-4.8); Monocytes # (M) 0.13 k/uL (0-1.0); Myelocytes # (M) 0.03 k/uL (0); Myelocytes % 1 %; Neutrophils % (M) 39 %; Nucleated Red Blood Cells 3 /100 WBC (0-0); Total Cells Counted 200; WBC 2.5 k/uL (3.8-10.6)
[2018-09-15 17:42] LABS: Anisocytosis (M) Present; Poikilocytosis (M) Present; Polychromasia Present; Tear Drop Cells Present
[2018-09-15 18:35] LABS: Erythrocyte Sedimentation Rate >140 mm/hr (0-20)
[2018-09-15 23:59] LABS: C Reactive Protein 6.9 mg/dL (0.0-0.8); Uric Acid 4.7 mg/dL (2.9-7.7)
[2018-09-16 01:36] LABS: Rheumatoid Factor 6 IU/mL (0-15)
== END ==
LOC: LABWHC1 13:25
PROVIDERS: ATTEND Orthopaedic Surgery
DX: D64.9 Anemia, unspecified (principal); M19.90 Unspecified osteoarthritis, unspecified site
CPT/HCPCS: 36415; 84550; 85025; 85652; 86038; 86140; 86431